=== PATIENT | female | born 1980 | race Hispanic/Latino ===

== ENCOUNTER 2017-05-01 17:24 | Emergency (ER) | payer OTHER ==
[~2017-05-01] VITALS: Ht 160 cm; Wt 81.6 kg
[~2017-05-01 17:24] MED LIST: CELEXA20 MG PO; CIPRO 500MG TA500 MG PO; PYRIDIUM200 MG PO
--- NOTE | 2017-05-01 17:43 | ED GI/GU/ABDOMINAL COMPLAINT ---
History of Present Illness General Chief Complaint: Abdominal Pain/Flank Pain Stated Complaint: STOMACH PAIN X20 MIN Source: patient Exam Limitations: no limitations Vital Signs & Intake/Output Vital Signs & Intake/Output Vital Signs Date Time Temp Pulse Resp B/P B/P Pulse O2 O2 Flow FiO2 Mean Ox Delivery Rate 05/01 2002 98.4 88 18 114/89 96 05/01 1846 99.2 88 16 122/68 98 Room Air 05/01 1730 98.9 109 18 139/89 98 Room Air ED Intake and Output 05/02 0000 05/01 1200 Intake Total 2000 Output Total Balance 1999 Intake, IV 2000 Patient 180 lb Weight Weight Reported by Patient Measurement Method Allergies Coded Allergies: NO KNOWN ALLERGIES (08/30/10) Reconcile Medications Ciprofloxacin (Cipro) 500 MG TAB 1 TAB PO BID UTI Citalopram Hydrobromide (Celexa) 20 MG TAB 1.5 TAB PO DAILY MENTAL HEALTH ( Reported) Ondansetron HCl (Zofran) 4 MG TABLET 1 TAB PO Q6-8P NAUSEA Oxycodone HCl/Acetaminophen (Percocet 5-325 MG Tablet) 5 MG-325 MG TABLET 1 TAB PO TID PRN PAIN Phenazopyridine Hydrochlorid2 (Pyridium) 200 MG TAB 1 TAB PO TID PRN DYUSURIA Triage Note: C/O SUDDEN ONSET OF LOWER ABDOMINAL PAIN X 30 MINUTES. ? . S Triage Nurses Notes Reviewed? yes ? U Is pt currently ? No Onset: Abrupt Duration: constant Timing: single episode today Quality/Severity: sharpness, severe, stabbing Severity Numbers: 8 Location: right lower quadrant Radiation: no radiation HPI: Patient is a 36-year-old female with an unremarkable past medical history who presents emergency room with concerns of acute onset of right lower quadrant and pelvic abdominal pain 30 minutes prior to arrival. Symptoms began 1 hour after eating [employer]. Patient does admit to trying to become sexually active, denies any fever chills chest pain shortness of breath back pain dysuria hematuria vaginal bleeding or discharge. No medications given prior to arrival. Patient has a remote history of appendectomy. ([facility]) Past History Travel History Traveled to [place] past 21 day No Medical History Any Pertinent Medical History? see below for history Neurological: NONE EENT: NONE Cardiovascular: NONE Respiratory: NONE Gastrointestinal: NONE Hepatic: NONE Renal: NONE Musculoskeletal: NONE Psychiatric: depression Endocrine: NONE Blood Disorders: NONE Cancer(s): NONE CASINO HOST/Reproductive: NONE Surgical History Surgical History: appendectomy, Psychosocial History What is your primary language Lao Tobacco Use: Never used ETOH Use: occasional use Family History Hx Contributory? No ([facility]) Review of Systems Review of Systems Constitutional: Reports: no symptoms. EENTM: Reports: no symptoms. Respiratory: Reports: no symptoms. Cardiovascular: Reports: no symptoms. GI: Reports: see HPI, abdominal pain. Genitourinary: Reports: no symptoms. Musculoskeletal: Reports: no symptoms. Skin: Reports: no symptoms. Neurological/Psychological: Reports: no symptoms. Hematologic/Endocrine: Reports: no symptoms. Immunologic/Allergic: Reports: no symptoms. All Other Systems: Reviewed and Negative ([facility]) Physical Exam Physical Exam General Appearance: moderate distress Head: atraumatic Eyes: Bilateral: normal appearance. Ears, Nose, Throat, Mouth: moist mucous membrane Neck: normal inspection Respiratory: no respiratory distress Cardiovascular: regular rate/rhythm Gastrointestinal: normal bowel sounds, soft, tenderness Extremities: normal range of motion Neurologic/Psych: no motor/sensory deficits, awake Skin: intact, normal color Core Measures ACS in differential dx? No Sepsis Present: No Sepsis Focused Exam Completed? No ([facility]) Progress Differential Diagnosis: AAA, AMI, biliary colic, bowel obstruction, colon cancer , cholecystitis, diverticulitis, ectopic , endometritis, esophageal varices, gastritis, hepatitis, hernia, hemorrhoids, ischemic bowel, inflamm bowel dis, intrauterine , kidney stone, Ara-Evans tear, ovarian cyst , ovarian torsion, pancreatitis, PID/cervicitis, peptic ulcer, PUD/GERD, perforated viscous, SBO, threatened AB, UTI/pyelo Plan of Care: Orders Procedure Date/time Status EKG 05/01 1743 Active URINALYSIS 05/01 1736 Complete PARTIAL THROMBOPLASTIN TIME 05/01 173 Complete PROTHROMBIN TIME 05/01 173 Complete LACTIC ACID 05/01 1736 Complete HUMAN BETA HCG SCREEN 05/01 1736 Complete COMPREHENSIVE METABOLIC PANEL 05/01 1736 Complete CBC WITHOUT DIFFERENTIAL 05/01 1736 Complete Laboratory Tests 05/01/17 2037: Lactic Acid Cancelled 05/01/17 1904: Urine Color YEL, Urine Clarity CLEAR, Urine pH 6.5, Ur Specific [place] <= 1.005 , Urine Protein NEG, Urine Ketones NEG, Urine Nitrite NEG, Urine Bilirubin NEG, Urine Urobilinogen 0.2, Ur Leukocyte Esterase NEG, Ur Microscopic EXAM NOT REQUIRED, Urine Hemoglobin NEG, Urine Glucose NEG 05/01/171811: Anion Gap 13, Estimated GFR > 60, BUN/Creatinine Ratio 20.0, Glucose 182 H, Lactic Acid 2.7 H, Calcium 9.5, Total Bilirubin 0.5, AST 55 H, ALT 57 H, Alkaline Phosphatase 76, Total Protein 6.9, Albumin 4.1, Globulin 2.8, Albumin/ Globulin Ratio 1.5, Total Beta HCG NEGATIVE, PT 10.2, INR 0.94, APTT 28, CBC w Diff NO MAN DIFF REQ, RBC 4.84, MCV 86.2, MCH 29.1, MCHC 33.8, RDW 13.4, MPV 8.2 , Gran % 65.0, Lymphocytes % 23.2, Monocytes % 5.9, Eosinophils % 5.4 H, Basophils % 0.5, Absolute Granulocytes 6.4, Absolute Lymphocytes 2.3, Absolute Monocytes 0.6, Absolute Eosinophils 0.5, Absolute Basophils 0 Due to patient's history of trying to become and last menstrual period was approximate 5 weeks ago that there is concerned of or ectopic where I offered patient and her contacts however she wanted to just take Tylenol for her pain. Discussed negative beta hCG SCREEN patient was given morphine 1920- PT WAS RE-EVALUATED AND HAD significant improvement of pain. CT scan currently pending. I updated patient on blood work CT scan was resulted showing hepatomegaly no acute process discussed CT scan results with patient Patient was able tolerate by mouth upon discharge patient was strongly advised to follow-up with discharge instructions and plan no suspicion upon discharge of ovarian torsion Diagnostic Imaging: Viewed by Me: CT Scan. Radiology Impression: no acute abnormality Initial ED EKG: normal p-waves, normal QRS complex, normal sinus rhythm, 85 BPM, NSR Comments: PATIENT: HERB PALACIOS PRESENT AGE: 36 PATIENT ACCOUNT NO: [id number] : 82 LOCATION: [facility] ORDERING PHYSICIAN: [facility] ESQUEDA SERVICE DATE: 05/01/17 EXAM TYPE: CAT - CT ABD & PELVIS W IV CONTRAST EXAMINATION: CT ABDOMEN AND PELVIS WITH CONTRAST CLINICAL INFORMATION: 46-year-old female patient with abdominal pain and vomiting for 2 hours. COMPARISON: None recent. TECHNIQUE: Multidetector volumetric imaging was performed of the abdomen and pelvis following IV administration of 90 mL of Optiray 320 intravenous contrast. Sagittal and coronal reformatted images were obtained on the technologist's workstation. DLP: 569 mGy-cm FINDINGS: ROUGHER MACHINE OPERATOR: A moderate burden of formed stool in the right and transverse colon. The patient has an umbilical ring. No obstruction. LUNG BASES: There is mild dependent atelectasis of the lower lobes. LIVER, GALLBLADDER, AND BILIARY TREE: The liver is enlarged and diffusely fatty infiltrated. There are no focal lesions or dilated biliary ducts. The gallbladder is postprandial in appearance. PANCREAS: Unremarkable. SPLEEN: Unremarkable. A 2 cm accessory spleen is located adjacent to the tail the pancreas. ADRENAL GLANDS: Unremarkable. KIDNEYS AND URETERS: The kidneys are normal in size, shape, and attenuation. No hydronephrosis, hydroureter, or calculi seen. No perinephric stranding. BLADDER: Partially filled and normal. GASTROINTESTINAL TRACT: The small and large bowel are unremarkable. No pericecal inflammatory disease. The stomach is filled with fluid and ingested food. ABDOMINAL WALL: No significant hernia is appreciated. LYMPH NODES: Small pelvic nodes of no consequence. VASCULAR: Unremarkable. PELVIC VISCERA: Uterus is anteverted and normal in shape and size (multiparous). Functional cysts are seen in both ovaries. An involuting corpus luteum cyst is seen in the right ovary. No free fluid. OSSEOUS STRUCTURES: Unremarkable. IMPRESSION: Hepatomegaly with fatty infiltration. DICTATED BY: Misbah Leal MD DATE/TIME DICTATED:05/01/171918 GRAPPLE SKIDDER OPERATOR:ROBERTO CARLOS DATE/TIME TRANSCRIBED:05/01/17 ([facility]) Departure Departure Disposition: HOME OR SELF CARE Condition: Stable Clinical Impression Primary Impression: Abdominal pain Referrals: Sammy SAWANT,Jose Luis Leslie MD,Aoy Raymundo (PCP/Family) Additional Instructions: As discussed begin prescription of Percocet for pain and Zofran for nausea, tomorrow follow-up with gastroenterology Dr. Christianson and ELECTRONICS ENGINEER, prescriptions waiting at [facility]. The symptoms worsen or if you develop new concerning symptom return to emergency room Departure Forms: Customer Survey General Discharge Information Prescriptions: Current Visit Scripts Oxycodone HCl/Acetaminophen (Percocet 5-325 MG Tablet) 1 TAB PO TID PRN PAIN #10 TAB Ondansetron HCl (Zofran) 1 TAB PO Q6-8P #5 TAB ([facility]) PA/LAYBOY TENDER Co-Sign Statement Statement: ED Attending supervision documentation- I saw and evaluated the patient. I have also reviewed all the pertinent lab results and diagnostic results. I agree with the findings and the plan of care as documented in the PA's/LAYBOY TENDER's documentation. x I have reviewed the ED Record and agree with the PA's/LAYBOY TENDER's documentation. [] Additions or exceptions (if any) to the PAs/LAYBOY TENDER's note and plan are summarized below: [] (Neeraj SAWANT,Pankaj)
[2017-05-01 18:32] LABS: ABSOLUTE BASOPHIL COUNT 0 /CUMM (0.0-0.2); ABSOLUTE EOSINOPHIL COUNT 0.5 /CUMM (0.0-0.7); ABSOLUTE GRANULOCYTE CT 6.4 /CUMM (1.4-6.5); ABSOLUTE LYMPH COUNT 2.3 /CUMM (1.2-3.4); ABSOLUTE MONOCYTE COUNT 0.6 /CUMM (0.10-0.60); BASOPHIL % 0.5 % (0.0-2.0); EOSINOPHIL % 5.4 % (0-5); HEMATOCRIT 41.7 % (37-47); MEAN CORPUSCULAR HGB 29.1 PG (27.0-31.0); MEAN CORPUSCULAR HGB CONC 33.8 G/DL (33.0-37.0); MEAN CORPUSCULAR VOLUME 86.2 FL (81.0-99.0); MEAN PLATELET VOLUME 8.2 FL (7.4-10.4); PLATELET COUNT 269 /CUMM (130-400); RBC DISTRIBUTION WIDTH 13.4 % (11.5-14.5); RED BLOOD CELL CT 4.84 /CUMM (4.20-5.40); WHITE BLOOD CELL COUNT 9.8 /CUMM (4.8-10.8)
[2017-05-01 18:39] LABS: PT 10.2 SEC (9.4-12.5); PTT 28 SEC (25-37)
--- NOTE | 2017-05-01 19:35 | CT SCAN REPORT ---
EXAMINATION: CT ABDOMEN AND PELVIS WITH CONTRAST CLINICAL INFORMATION: 46-year-old female patient with abdominal pain and vomiting for 2 hours. COMPARISON: None recent. TECHNIQUE: Multidetector volumetric imaging was performed of the abdomen and pelvis following IV administration of 90 mL of Optiray 320 intravenous contrast. Sagittal and coronal reformatted images were obtained on the technologist's workstation. DLP: 569 mGy-cm FINDINGS: CORE BLOWER: A moderate burden of formed stool in the right and transverse colon. The patient has an umbilical ring. No obstruction. LUNG BASES: There is mild dependent atelectasis of the lower lobes. LIVER, GALLBLADDER, AND BILIARY TREE: The liver is enlarged and diffusely fatty infiltrated. There are no focal lesions or dilated biliary ducts. The gallbladder is postprandial in appearance. PANCREAS: Unremarkable. SPLEEN: Unremarkable. A 2 cm accessory spleen is located adjacent to the tail the pancreas. ADRENAL GLANDS: Unremarkable. KIDNEYS AND URETERS: The kidneys are normal in size, shape, and attenuation. No hydronephrosis, hydroureter, or calculi seen. No perinephric stranding. BLADDER: Partially filled and normal. GASTROINTESTINAL TRACT: The small and large bowel are unremarkable. No pericecal inflammatory disease. The stomach is filled with fluid and ingested food. ABDOMINAL WALL: No significant hernia is appreciated. LYMPH NODES: Small pelvic nodes of no consequence. VASCULAR: Unremarkable. PELVIC VISCERA: Uterus is anteverted and normal in shape and size (multiparous). Functional cysts are seen in both ovaries. An involuting corpus luteum cyst is seen in the right ovary. No free fluid. OSSEOUS STRUCTURES: Unremarkable. IMPRESSION: Hepatomegaly with fatty infiltration.
[2017-05-01] MEDS ORDERED: PERCOCET 5-3251 EACH PO (19:41)
[2017-05-01] MEDS ORDERED: ZOFRAN4 M2 PO (19:41)
[2017-05-01 20:03] VITALS: BP 114/89
== END 2017-05-01 20:07 ==
LOC: ERH 17:24
PROVIDERS: Physician Assistant Medical
DX: R10.31 Right lower quadrant pain (principal)
CPT/HCPCS: 74177; 81003; 93005; 93010; 96361; 96374; 96375; J0131; J2405